=== PATIENT | male | born 1960 | race Caucasian/White ===

== ENCOUNTER → 2017-10-04 17:55 | Outpatient (CLI) | payer MEDICARE, MEDICAID, SELFPAY ==
--- NOTE | 2017-10-04 | DI.MRI.S_ITS ---
PROCEDURE: MR SHOULDER RT WO CON INDICATIONS: 56 year-old male with right shoulder pain, right finger and arm numbness. TECHNIQUE: Noncontrast oblique coronal T2 fast spin echo with fat saturation, oblique sagittal T1 spin echo and T2 fast spin echo with fat saturation, axial T1 spin echo and T2 fast spin echo with fat saturation through the shoulder. COMPARISON: [facility], CR, XR SHOULDER RT MIN 2V, 09/13/2017, 15:04. FINDINGS: Image quality: Excellent. Rotator cuff: The supraspinatus, infraspinatus, and subscapularis tendons appear intact throughout. No rotator cuff muscle atrophy on sagittal images. Bones and bursae: No bone marrow contusions or fractures. There is mild acromioclavicular joint degeneration, with osseous and synovial hypertrophy. The acromion demonstrates conventional anatomy, without an os acromiale. No pathologic subacromial-subdeltoid or subcoracoid bursal fluid is present. Capsule and soft tissues: On coronal image 11, there is mildly irregular linear signal within the superior labrum. In the absence of intra-articular contrast, the glenohumeral ligaments appear intact. The long head of the biceps tendon demonstrates normal location and morphology. The rotator interval appears normal, without fibrosis. The coracohumeral ligament is normal in thickness. IMPRESSION: 1. Probable small superior labral tear. No para labral cyst formation. 2. Mild acromioclavicular joint degeneration. Dictated by: Caesar Escobar M.D. on 10/05/2017 at 10:43 Approved by: Caesar Escobar M.D. on 10/05/2017 at 10:49
--- NOTE | 2017-10-04 | DI.MRI.S_ITS ---
PROCEDURE: MR CERVICAL SPINE WO CON INDICATIONS: CERVICAL STENOSIS AND RT SHOULDER ROTATOR CUFF TECHNIQUE: Noncontrast sagittal T1 spin echo and T2 fast spin echo, sagittal STIR, foraminal oblique sagittal T2 fast spin echo, and axial gradient echo or T2 fast spin echo through the cervical spine. COMPARISON: [facility], CR, XR CERVICAL SPINE 2 OR 3 VIEWS, 09/27/2017, 10:04. FINDINGS: Image quality: Excellent. Alignment and Curvature: There is mild loss of cervical lordosis. Bone Marrow: There is inferior endplate edema at C5 and C6. Spinal Cord: Visualized spinal cord has normal size and signal. No cerebellar tonsillar herniation. Paraspinous Soft Tissues: No paravertebral masses. Prevertebral soft tissues are normal in thickness. C2-C3: Normal appearance. C3-C4: Mild disc desiccation with preserved disc height. Mild uncovertebral hypertrophy. The central canal is patent. Mild bilateral foraminal stenosis. C4-C5: Mild disc desiccation with preserved disc height. Mild diffuse posterior disc bulge and uncovertebral hypertrophy. The central canal is mildly narrowed. Moderate right and mild left foraminal stenosis. C5-C6: Moderate loss of disc height and disc desiccation. There is broad posterior disc bulge and disc protrusion. Moderate bilateral facet arthropathy. The central canal is severely narrowed. Moderate bilateral foraminal stenosis. C6-C7: Mild loss of disc height and disc desiccation. There is broad posterior disc bulge. Mild bilateral facet arthropathy. The central canal is moderately narrowed. Severe bilateral foraminal stenosis. C7-T1: Normal appearance. IMPRESSION: 1. Multilevel degenerative disc disease and facet arthropathy as described. 2. Severe central canal stenosis at C5-C6. 3. Multilevel foraminal stenoses as described. Dictated by: Jayson Silveira M.D. on 10/05/2017 at 16:16 Approved by: Jayson Silveira M.D. on 10/06/2017 at 9:44
== END ==
PROVIDERS: Family Provider Family Medicine; PCP Family Medicine; Visit Provider Orthopaedic Surgery
DX: M54.2 Cervicalgia (principal); M19.011 Primary osteoarthritis, right shoulder; M48.02 Spinal stenosis, cervical region
CPT/HCPCS: 72141; 73221

== ENCOUNTER 2018-01-12 05:59 | Day surgery (SDC) | payer MEDICARE, MEDICAID, SELFPAY ==
[2017-12-27 08:35] VITALS: BMI 31.6
[2018-01-12] VITALS (14 sets, daily range): BP systolic 135–169; BP diastolic 73–98; PULSE 67–92; RESP 8–16; TEMP 35.9–36.9; O2SAT 91–98; BMI 31.6
--- NOTE | 2018-01-12 | DI.RAD.S_ITS ---
PROCEDURE: XR CERVICAL SPINE 2V OR 3V INDICATIONS: c5-6, 6-7 ACDF TECHNIQUE: 2 view(s) of the cervical spine were acquired. COMPARISON: None. FINDINGS: Bones: Additional acquisition imaging immediately after anterior cervical discectomy and interbody disc prosthesis placement at C5-6 and C6-7. Soft tissues: No prevertebral soft tissue swelling. IMPRESSION: Normal alignment established after 2 level discectomy with interbody disc prosthesis placement at C5-6 and C6-7. Dictated by: Marquise Quintanilla M.D. on 01/12/2018 at 9:34 Approved by: Marquise Quintanilla M.D. on 01/12/2018 at 9:45
[2018-01-12] MEDS: LACTATED RINGERS 1,000 ML 42 ML IV (07:05)
[2018-01-12] MEDS: GABAPENTIN 600 MG TABLET 1200 MG PO (07:12)
--- NOTE | 2018-01-12 07:29 | PM.PREOP ---
Pre-operative Note Interval Note Pre-op Check: Yes History & Physical Reviewed by Physician and Yes Exam Performed Changes: No
--- NOTE | 2018-01-12 07:29 | PM.OP.1 ---
Operative Date/Time/Diagnoses Date of procedure: 01/12/18 Time of procedure: 09:20 Pre-op diagnosis: Cervical disc herniation and stenosis with radiculopathy Post-op diagnosis: same Procedure & Clinicians Procedure: C5-6 anterior diskectomy and artificial disc replacement C6-7 anterior diskectomy and artificial disc replacement use of microscope Same procedure as scheduled: Yes Indications: [age] year old male with intractable pain from cervical disc herniation. They had failed conservative management and requested operative intervention. Risks and benefits of surgery were discussed and appropriate consents were obtained. Surgeon: Aston Stone Executive Officer: Norma Stock Click Yes if Unassisted: No Anesthesia Type: General Operative Notes Findings: None Closure Type: primary Specimen(s): none sent Implants & Drains: Fidencio LDR Mobi-C Estimated Blood Loss (mL): 10 Blood products transfused: none Procedure in detail: Patient was brought to the operating room and intubated on the table. A time-out was performed. Preoperative antibiotics were given. The neck was prepped and draped in the standard sterile fashion. Using a skin fold, we made a 3 cm oblique incision on the left side. We used Bovie to go through the platysma and then did a standard anterolateral blunt dissection down to the precervical fascia. Fascia was nicked and elevated up. A marker was placed and x-ray was taken for localization. We then subperiosteally elevated up the longus colli muscles. Self-retaining retractors were placed. [place] pins were placed under x-ray guidance to be parallel to the endplates. We then brought in the microscope. A scalpel used to perform an annulotomy. We then used a combination of pituitaries and curettes and Kerrison to perform a complete anterior diskectomy at C6-7. We took down the PLL and used Kerrison to remove any posterior disc material and osteophytes. At the end we could from the nerve hook cephalad caudally and out the foramen and everything was opened. We distracted open with the parallel hand wood sander. We then used the horseshoes for sizing. We then used the trials. We then inserted a 17 mm x 15 mm x 5 mm Mobi-C artificial disc replacement under fluoroscopic guidance for positioning. The traction was released and x-ray was checked again. We then moved up to C5-6. [place] pin was placed into C5 and distracted. A complete diskectomy was performed with curettes and pituitaries and Kerrisons. We took down the PLL. Posterior disc and osteophytes were removed. We cleared out the neural foramen. In the end everything was open with a nerve hook. We again trialed and this time placed a 15 mm x 15 mm x 6 mm Mobi-C artificial disc replacement under fluoroscopic guidance for positioning. The traction was released and x-rays checked again. All the retractors were removed and final x-rays were taken. The wound was irrigated. There was no bleeding. The carotid was beating nicely. The platysma was closed. The superficial was closed. The skin was closed. A sterile dressing was placed. They were then extubated and brought to recovery room with no complications. Complications: none Condition: stable Disposition: PACU Plan for aftercare: Overnight admission. Should be fine for discharge tomorrow.
[2018-01-12] MEDS: CEFAZOLIN 2 GM/100 ML FROZ.PIGGY IV ×2 (07:47→16:26)
--- NOTE | 2018-01-12 08:21 | SUR.OPER ---
Supine, head on gel donut. Arms padded with gel pads, tucked at sides, towel roll under shoulders. Safety belt at thigh. Legs uncrossed.
[2018-01-12] MEDS: BUPIVACAINE 0.25% W/ EPI VIAL 50 ML INJ (08:31)
[2018-01-12] MEDS: THROMBIN (BOVINE) 5,000 UNIT VIAL 5000 UNIT TOP (08:32)
[2018-01-12] MEDS: GENTAMICIN 80 MG in SODIUM CHLORIDE 0.9% 1,000 ML 12024 MG IRR (08:40)
[2018-01-12] MEDS: HYDROMORPHONE 2 MG INJ 0.5 MG IV ×4 (09:46→10:14)
[2018-01-12] MEDS: ONDANSETRON 4 MG/2 ML INJ IV ×2 (09:56→10:11)
[2018-01-12] MEDS: hydrOXYzine pamoate 25 MG CAPSULE PO (10:08)
--- NOTE | 2018-01-12 10:28 | SUR.PHASEI ---
Report called to Cassandra Bernal
--- NOTE | 2018-01-12 10:53 | SUR.PHASEI ---
Pt transferred to the floor. VS stable. IV saline locked. Small amt of bloody drainage to dressing LLQ. Belongings bag and glasses with patient. Report to GREER Trujillo. Pt reported tingling to Rt thumb as normal for him.
[2018-01-12] MEDS: LACTATED RINGERS 1,000 ML 125 ML IV (11:37)
--- NOTE | 2018-01-12 13:04 | SLP.IPNOTE ---
TRAIN DISPATCHER spoke with patient after ACDF surgery. Explained the procedure and the possible difficulties with voice/swallowing following this procedure. Patient verbalized understanding of this information. He stated that he has had difficulty swallowing in the past, but that he does not feel that he is having any trouble at this time. No reported change in voice. He did report mild pain in his throat, but was not concerned. TRAIN DISPATCHER recommended that if any pain or changes develop/continue for 1-2 weeks post-surgery, to consult his MD. Patient agreed. No evaluation performed. Total time: 5 minutes.
--- NOTE | 2018-01-12 15:35 | PT.IIE ---
Current Diagnoses Spinal stenosis, cervical region (01/12/18) Radiculopathy, cervical region (01/12/18) Surgery Performed Operation Date: 01/12/18 07:45 Actual Procedures p C5-6, C6-7 Anterior Discectomy & Art Disc Replacement - Aston Stone MD Surgical History (Last Updated 12/27/17 @ 09:42 by Sharon Ramirez RN) Hx of eye surgery (Acute) Hx of heart artery stent (Acute) Hx of sinus surgery (Acute) Hx of tonsillectomy (Acute) S/P CABG x 3 (Acute) Medical History (Last Updated 12/27/17 @ 09:53 by Sharon Ramirez RN) Asthma (Acute) BCC (basal cell carcinoma) (Acute) CAD (coronary artery disease) (Acute) COPD (chronic obstructive pulmonary disease) (Acute) Chronic neck and back pain (Acute) Colon polyps (Acute) GERD (gastroesophageal reflux disease) (Acute) Gastric ulcer (Acute) HTN (hypertension) (Acute) Heart murmur (Acute) History of HIV infection (Acute) Hyperlipidemia (Acute) Hypothyroidism (Acute) Impaired glucose tolerance (Acute) Kidney stones (Acute) Neuropathy (Acute) Nonrheumatic aortic (valve) insufficiency (Acute) Pleurisy (Acute) Pneumonia (Acute) Right shoulder pain (Acute) Physical Therapy Inpatient Evaluation/Re-Eval M1 PT/OT-IP Prior Functional Status Start: 01/12/18 16:35 Freq: NEEDED Status: Active Protocol: Document 01/12/18 15:35 AB (Rec: 01/12/18 16:45 AB [id number]) Medical Review Prior Functional Status Medical History Reviewed Yes Communication able to make needs known Mobility and Gait stated that he is independent with all mobilities and ambulation without AD Social History Household Members spouse children Living Arrangements House Number of Floors (Floors) One Floor Number of Stairs To Enter/Railing? has no steps to enter Home Environment Standard Height Toilet Walk in Shower Home Equipment Hand Held Shower Grab Bars In Shower Employment Status Retired M2 PT-IP Current Condition Start: 01/12/18 16:35 Freq: NEEDED Status: Active Protocol: Document 01/12/18 15:35 AB (Rec: 01/12/18 16:45 AB [id number]) Physical Therapy Current Condition Current Condition Evaluation Date 01/12/18 Treatment Diagnosis s/p C5-6 ACDF and C6-7 diskectomy; difficulty in walking Onset Date 01/12/18 Precautions Cervical Spine Precautions Soft Collar for Comfort Soft Collar at all Times Rigid Collar No Heavy Lifting Log Roll Brace pt has soft cervical collar on during PT eval M3 PT-IP Subjective Start: 01/12/18 16:35 Freq: NEEDED Status: Active Protocol: Document 01/12/18 15:35 AB (Rec: 01/12/18 16:45 AB [id number]) Subjective Physical Therapy Visit Type Type Initial Evaluation Visit Start Time 15:35 Visit Stop Time 16:05 Total Visit Minutes 30 Number of BELT KNIFE FEEDER Visits 0 Physical Therapy Visit Comments Patient Comments i am hungry Therapy Pain Assessment Pain When Pain Assessed At Rest Pain Present Pain Present Pain Reported Location Neck Intensity 3 Scale Used Numeric (1 - 10) M4 PT-IP Mobility and Gait Start: 01/12/18 16:35 Freq: NEEDED Status: Active Protocol: Document 01/12/18 15:35 AB (Rec: 01/12/18 16:45 AB [id number]) PT-Bed Mobility Assessment Rolling Type of Rolling Log Rolling Level of Assist Standby Assistance Supine to Sit Supine to Sit Standby Assistance PT-Transfer Assessment Sit to and From Stand Sit to and from Stand Standby Assistance Equipment Transfer Assistive Device Gait Belt Gait Assessment Gait Gait Assistance Required: Standby Assistance Distance (Feet) (feet) 250 Able to Maintain Weight Bearing Status Yes During Gait Assistive Devices Assistive Device Gait Belt Orthotic/Prosthetic Devices or Brace: No Gait Deviations General Gait Pattern Decreased Stride Length Factors Limiting Gait Function Factors Limiting Gait Function Decreased Activity Tolerance Decreased Strength Pain PT-Balance Assessment Sitting Balance and Reactions Static Sitting Balance Ability Good Dynamic Sitting Balance Ability Good Standing Balance and Reactions Static Standing Balance Ability Good Dynamic Standing Balance Ability Good Device Used without AD M5 PT-IP Objective Assessments Start: 01/12/18 16:35 Freq: NEEDED Status: Active Protocol: Document 01/12/18 15:35 AB (Rec: 01/12/18 16:45 AB [id number]) Orientation Orientation/Cognition Level of Alertness Alert Orientation Name Age Birthday Month Date Year Day of Week Place Situation Gross Range of Motion Lower Extremity ROM Assessment Within Functional Limits Strength Lower Extremity Strength Assessment Within Functional Limits Muscle Tone Muscle Tone WNL Yes M6 PT-IP Treatment Start: 01/12/18 16:35 Freq: NEEDED Status: Active Protocol: Document 01/12/18 15:35 AB (Rec: 01/12/18 16:45 AB [id number]) Physical Therapy Treatment Education Education Provided Precautions Weight Bearing Status Post-Op Packet Safety M7 PT-IP Assessment and Plan Start: 01/12/18 16:35 Freq: NEEDED Status: Active Protocol: Document 01/12/18 15:35 AB (Rec: 01/12/18 16:45 AB [id number]) PT Summary Assessment and Plan Potential Rehabilitation Potential Good Status of Condition at Evaluation Stable Summary Impairments Pain ROM Strength Balance Coordination Bed Mobility Transfers Gait Activity Tolerance Assessment Summary pt requiring SBA with mobility and will have his spouse or son to assist him at home. pt may go home when medically stable. Goals Bed Mobility Goal Independent Transfer Goal Independent Gait Goal Independent Gait Distance 250 Days to Meet Goals 2 Frequency of Treatment Frequency Of Treatment Twice a Day Treatment Plan Physical Therapy Treatment Plan Bed Mobility Training Transfer Training Gait Training Therapeutic Exercise Balance Retraining Post Op Education Discharge Planning Hot or Cold Pack Neuromuscular Re-ed Coordination Retraining Manual Therapy Recommendations To Nursing Amount of Assist Needed Standby Assistance Discharge Recommendations PT Discharge Recommendations Home with Assistance
[2018-01-12] MEDS: HYDROCODONE/ACET 5/325 TABLET 1 TAB PO (16:28)
--- NOTE | 2018-01-12 16:44 | PC.NURSE ---
Discharge orders received from Kendell Stock PA-C via telephone. States not in house to actually file discharge orders. Scripts are in pt's chart and these were photocopied and originals given to pt's spouse per pt request. Administered single vicodin prior to discharge per pt's request for pain 08/22. Soft collar in place. Pt reports able to void without difficulty, has eaten meal, denies difficulty with swallow although states is somewhat sore to do so. IV antibioics infusing as ordered @ 1600. P.T. has ambulated pt around hallway without difficulty. Pt's spouse and son are present and awaiting discharge. Pt verbalizes desire to go home. Written and verbal discharge instructions provided. Pt states has follow up appointment already scheduled. Pt reports all valuables and home meds are accounted for and in pt's possession.
--- NOTE | 2018-01-12 16:55 | OT.IP.TRT ---
Current Diagnoses Spinal stenosis, cervical region (01/12/18) Radiculopathy, cervical region (01/12/18) Surgery Performed Operation Date: 01/12/18 07:45 Actual Procedures p C5-6, C6-7 Anterior Discectomy & Art Disc Replacement - Aston Stone MD Occupational Therapy Treatment Note M3 OT- IP Subjective and Pain Start: 01/12/18 16:53 Freq: Status: Active Protocol: Document 01/12/18 16:54 [facility] (Rec: 01/12/18 16:55 [facility] [id number]) OT- Subjective Occupational Therapy Visit Type Type Administrative Note Notes Pt going home today and already seen by PT and has supportive family to assist at home. Pt states has no questions or concerns for OT needs. Therefore discharge Ot eval order.
--- NOTE | 2018-01-12 17:07 | PC.NURSE ---
Pt most eager to go home. IV dc'd intact and pt reports relief from vicodin administered earlier to manage pain. Pt left hospital ambulatory with family members accompanying with [employer]TERN [employer] escort. Pt left hospital in stable condition to follow up with orthopedic surgeon two weeks.
--- NOTE | 2018-01-12 18:55 | PC.NURSE ---
Pharmacist from [facility] in [place] phones this travel writer inquiring re pt's naproxyn script. Written as one po bid x 2 weeks, dispense 14 is written. Informed pharmacist this travel writer took a verbal telephone order from Kendell Stock PA-C that pt was to take naproxen x 2 weeks and then restart meloxicam. Clarified and pharmacist to adjust to 28 tabs.
== END 2018-01-12 17:10 | disposition home or self-care (01) ==
LOC: OR 06:03 → AC 11:03
PROVIDERS: Family Provider Family Medicine; PCP Family Medicine; Visit Provider Orthopaedic Surgery
PROC: (CPT 22856; principal; 2018-01-12 07:45)
DX: M50.122 Cervical disc disorder at C5-C6 level with radiculopathy (principal); M48.02 Spinal stenosis, cervical region; F17.210 Nicotine dependence, cigarettes, uncomplicated; I25.10 Atherosclerotic heart disease of native coronary artery without angina pectoris; I51.9 Heart disease, unspecified; J45.909 Unspecified asthma, uncomplicated
CPT/HCPCS: 22856; 22858; 72040; 76000; 97161; C1776; J0690; J1100; J1170; J2250; J2405; J2704; J3010

== ENCOUNTER → 2018-06-05 15:37 | Outpatient (REF) | payer MEDICARE, MEDICAID, SELFPAY ==
[2018-01-12 11:44] VITALS: BMI 31.6
[2018-06-05 16:08] LABS: Influenza A and B by PCR Rapid Negative (Negative)
== END ==
LOC: LAB 15:37
PROVIDERS: Family Provider Family Medicine; PCP Family Medicine; Visit Provider Family Medicine
DX: R50.9 Fever, unspecified (principal)
CPT/HCPCS: 87400

== ENCOUNTER 2019-01-04 15:39 | Emergency (ER) | payer OTHER, MEDICARE, MEDICAID, SELFPAY ==
[2018-01-12 11:44] VITALS: BMI 31.6
[2019-01-04 15:42] VITALS: BP 122/70; PULSE 83; RESP 14; TEMP 36.7; O2SAT 97; BMI 30.4
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
[2019-01-04] MEDS: CYCLOBENZAPRINE 10 MG TABLET PO (16:54)
[2019-01-04] MEDS: KETOROLAC 60 MG/2 ML VIAL 30 MG IM (16:54)
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
[2019-01-04 17:55] VITALS: BP 111/64; PULSE 58; RESP 18; O2SAT 96
== END 2019-01-04 17:55 | disposition home or self-care (01) ==
PROVIDERS: Emergency Provider Emergency Medicine; Family Provider Family Medicine; PCP Family Medicine
DX: S16.1XXA Strain of muscle, fascia and tendon at neck level, initial encounter (principal); M54.9 Dorsalgia, unspecified; V49.40XA Driver injured in collision with unspecified motor vehicles in traffic accident, initial encounter
CPT/HCPCS: 72100; 72125; 96372; 99283; 99284; J1885

== ENCOUNTER → 2020-05-19 12:55 | Outpatient (CLI) | payer OTHER, MEDICAID, SELFPAY ==
[2018-01-12 11:44] VITALS: BMI 31.6
[2020-05-19 15:00] LABS: Reticulocyte Count, Percent 1.9 % (0.87-2.60)
[2020-05-19 15:03] LABS: Add Manual Diff / Slide Review NO; Basophils Absolute Auto 0 /uL (0-100); Basophils Percent Auto 0.4 % (0-2); Eosinophils Absolute Auto 100 /uL (0-450); Hematocrit 39.9 % (41-53); Hemoglobin 13.6 g/dL (13.5-17.5); Lymphocytes Absolute Auto 2300 /uL (1100-4500); Lymphocytes Percent Auto 41.5 % (25-40); Mean Corpuscular Volume 102.7 fL (80-100); Monocytes Absolute Auto 500 /uL (0-900); Monocytes Percent Auto 9.3 % (3-14); Neutrophils Absolute Auto 2600 /uL (1500-7000); Neutrophils Percent Auto 47.8 % (50-75); Platelet Count 213 X10^3/uL (150-400); Red Blood Cell Count 3.89 X10^6/uL (4.5-5.9); Red Cell Distribution Width 13.4 % (11.6-14.8); White Blood Cell Count 5.5 X10^3/uL (4.5-11.0)
[2020-05-19 15:30] LABS: Alanine Aminotransferase 34 IU/L (<50); Albumin 4.5 g/dL (3.5-5.0); Albumin Globulin Ratio 1.5 (1.0-2.8); Alkaline Phosphatase 32 U/L (38-126); Aspartate Aminotransferase 41 IU/L (17-59); BUN Creatinine Ratio 16.3 (6-22); Bilirubin Total 0.2 mg/dL (0.2-1.3); Blood Urea Nitrogen 21 mg/dL (9-20); Calcium 9.5 mg/dL (8.4-10.2); Carbon Dioxide 29 mmol/L (22-32); Chloride 110 mmol/L (98-107); Estimated Glomerular Filt Rate 56.8 mL/min (>60); Globulin 3.1 g/dL (1.7-4.1); Glucose 100 mg/dL (80-110); HEMOLYSIS < 15 (0-50); Sodium 142 mmol/L (137-145); Total Protein 7.6 g/dL (6.3-8.2)
[2020-05-19 15:45] LABS: Total Iron Binding Capacity 410 ug/dL (261-462)
[2020-05-19 16:02] LABS: Ferritin 194 ng/mL (18-464)
[2020-05-19 16:32] LABS: Folate > 20.0 ng/mL (2.76-20.0); Vitamin B12 600 pg/mL (239-931)
== END ==
PROVIDERS: Family Provider Family Medicine; PCP Family Medicine; Referring Provider Family Medicine; Visit Provider Family Medicine
DX: D64.9 Anemia, unspecified (principal)
CPT/HCPCS: 36415; 80053; 82607; 82728; 82746; 83550; 85025; 85045

== ENCOUNTER → 2021-08-26 15:54 | Outpatient (CLI) | payer OTHER, MEDICAID, SELFPAY ==
[2018-01-12 11:44] VITALS: BMI 31.6
[2021-08-26 17:04] LABS: COVID19 -Nasal RAPID Negative (Negative)
== END ==
PROVIDERS: Family Provider Family Medicine; PCP Family Medicine; Visit Provider Family Medicine Sleep Medicine
DX: Z20.822 Contact with and (suspected) exposure to COVID-19 (principal)
CPT/HCPCS: 87635; C9803

== ENCOUNTER → 2021-08-27 09:14 | Outpatient (CLI) | payer OTHER, MEDICAID, SELFPAY ==
[2018-01-12 11:44] VITALS: BMI 31.6
[2021-08-26 13:27] VITALS: BMI 31.6
--- NOTE | 2021-08-27 | DI.NM.S_ITS ---
PROCEDURE: NM DESIRE PERF SPECT R&S PHARM Rest and pharmacological stress myocardial perfusion SPECT with gated imaging and ejection fraction RADIOPHARMACEUTICAL: 11.8 mCi Tc-99m tetrafosmin IV at rest and 26.3 mCi Tc-99m tetrafosmin IV at peak effect of pharmacological stress. [id number]-dbt-[id number] was performed. INDICATIONS: Presence of aortocoronary bypass graft TECHNIQUE: Radiopharmaceutical was injected at peak stress test, and also at rest. SPECT images were obtained. SPECT myocardial perfusion images were displayed in short axis, horizontal long axis, and vertical long axis views. Gated images were reviewed using [employer] software. COMPARISON: None. CARDIAC STRESS: A pharmacologic stress test was performed under the supervision of an attending staff, using an infusion of lexiscan 0.4mg IV X1. Hemodynamic data: There is normal blood pressure and heart rate response to pharmacologic stress. Symptoms: The patient denied anginal chest pain. Aminophylline: none EKG: No diagnostic changes of ischemia; no ectopy. FINDINGS: Raw data: There is good myocardial uptake of radiotracer. No significant motion artifacts. Left ventricle function: Gated images demonstrate normal left ventricular wall thickening. No segmental wall motion abnormalities. No transient ischemic dilation; TID is 0.74 (normal less than 1.3). Left ventricle resting end diastolic volume is 140 mL. Left ventricle stress ejection fraction is 73%; normal range is above 45%. Myocardial perfusion: There is normal distribution of activity in the right and left ventricular myocardium. No fixed or reversible perfusion defects. IMPRESSION: Low risk, normal pharmaceutical nuclear stress test 1) No perfusion evidence of ischemia or infarction. 2) Normal left ventricular size, wall motion, and systolic function (EF post stress 73%). 3) No ST changes with lexiscan. 4) No angina during the study. 5) Compared to nuclear stress test 04/02/2010, LAD area ischemia is no longer present on the current study. Dictated by: Gregoria Aragon MD on 08/30/2021 at 16:56 Approved by: Gregoria Aragon MD on 08/30/2021 at 16:58
--- NOTE | 2021-08-27 10:46 | DI.ECHO.S_ITS ---
+ + :Name: marcie park Study Date: 08/27/2021 Height: 68 in : :Hospital ReadingLocation: Weight: 200 lb : : Gender: Male BSA: 2.0 m2 : :: 1960 Age: 60 yrs BP: 155/90 mmHg: :Reason For Study: CABG : :Ordering Physician: GUDELIA, : :MIGUEL Performed By: Ramiro Hudson : :Referring: MIGUEL GALEAS : + + Interpretation Summary Left ventricular wall thickness is mildly increased. Left ventricular systolic function is normal. The ejection fraction is estimated to be 55-60%. There are no focal wall motion abnormalities. Diastolic parameters suggest probable normal left ventricular diastolic function and normal filling pressures. The right ventricle is normal in size and function. Both atria are normal in size. There is mild mitral regurgitation. The aortic valve is mildly calcified. There is mild to moderate aortic regurgitation. There is no other significant valvular heart disease. The aortic root is normal size. The ascending aorta is mild-moderately enlarged. Procedure: A two-dimensional transthoracic echocardiogram with color flow and Doppler was performed. The study quality was technically adequate. Comparison is made with the echocardiogram of 07/26/2011. The patient was in normal sinus rhythm during the exam. Left Ventricle: The left ventricle is normal in size. Left ventricular wall thickness is mildly increased. Left ventricular systolic function is normal. The ejection fraction is estimated to be 55-60%. There are no focal wall motion abnormalities. Diastolic parameters suggest probable normal left ventricular diastolic function and normal filling pressures. Right Ventricle: The right ventricle is normal in size and function. Atria: Both atria are normal in size. The interatrial septum grossly appears intact with no obvious evidence for an atrial septal defect. Mitral Valve: The mitral valve is normal in structure and function. There is mild mitral regurgitation. Aortic Valve: The aortic valve is mildly calcified. The aortic valve opens well. There is mild subvalvular aortic stenosis. The aortic valve mean gradient is 16 mmHg. Subaortic membrane is visualizrd. There is mild to moderate aortic regurgitation. Tricuspid Valve: The tricuspid valve is normal in structure and function. No tricuspid regurgitation. Pulmonary artery pressures cannot be estimated because of the lack of a measurable TR jet velocity. Pulmonic Valve: The pulmonic valve is normal in structure and function. There is a trace or physiologic amount of pulmonic regurgitation. There is no other significant valvular heart disease. Great Vessels: The aortic root is normal size. The ascending aorta is mildmoderately enlarged. The IVC is of normal diameter and collapses greater than 50% with a sniff. This suggests a low right atrial pressure of 3 mm Hg. Pericardium/ Pleura There is no pericardial effusion. There is no pleural effusion. MMode/2D Measurements & Calculations LVIDd: 5.1 cm LVOT diam: 2.3 cm LVIDs: 3.4 cm Ao root diam: 3.6 cm FS: 33.3 % asc Aorta Diam: 4.1 cm IVSd: 1.2 cm LVPWd: 1.2 cm LV stevens. diameter/BSA (cm/m^2): 2.5 LV sys. diameter/BSA (cm/m^2): 1.7 LA A2 area: 18.0 cm2 RA long axis: 5.1 cm LA A4 area: 20.2 cm2 RA area: 13.6 cm2 LA length (vol): 5.8 cm RA vol: 30.7 ml LA vol: 53.0 ml RA : 15.0 ml/m2 LA vol index: 25.9 ml/m2 TAPSE: 2.2 cm Doppler Measurements & Calculations Ao V2 max: 284.3 cm/sec LVOT Max Cale: 190.9 cm/sec Ao V2 mean: 184.6 cm/sec LV V1 max P.6 mmHg Ao max P.3 mmHg LV V1 VTI: 45.5 cm Ao mean P.0 mmHg ANGELA(I,D): 3.1 cm2 Ao V2 VTI: 61.4 cm ANGELA(V,D): 2.8 cm2 sev ratio: 0.74 ANGELA indexed to BSA (cm^2/m^2): 1.5 AI P1/2t: 513.0 msec AI dec slope: 244.7 cm/sec2 MV E max cale: 86.8 cm/sec SV(LVOT): 190.1 ml MV A max cale: 83.0 cm/sec MV E/A: 1.0 Med Peak E' Cale: 5.9 cm/sec E/E' med: 14.7 Lat Peak E' Cale: 7.2 cm/sec E/E' lat: 12.1 E/e' average: 13.4 MV dec time: 0.23 sec Reading Physician:09:35 AM
--- NOTE | 2021-08-27 15:02 | PM.TREADMILL ---
Cardiac Stress Test Report Referral & Results Date Patient Seen: 08/27/21 Time Patient Seen: 15:02 Requesting provider: Lillian Argueta Indication: CAD, S/P CABG Rest ECG: Sinus rhythm Procedure Note: After Lexiscan injection, had minimal dyspnea, no chest pain No significant ST changes after Lexiscan injection No ectopy Impression: Normal Lexiscan stress test Nuclear images pending Please note: Actual ECG tracings can be found in the PACS system.
== END ==
PROVIDERS: Family Provider Family Medicine; PCP Family Medicine; Referring Provider Nurse Practitioner; Visit Provider Nurse Practitioner
DX: I25.10 Atherosclerotic heart disease of native coronary artery without angina pectoris (principal); Z95.1 Presence of aortocoronary bypass graft
CPT/HCPCS: 78452; 93017; 93306; A9502; J2785

== ENCOUNTER → 2023-05-25 12:12 | Outpatient (CLI) | payer OTHER, MEDICAID, SELFPAY ==
[2021-08-26 13:27] VITALS: BMI 31.6
--- NOTE | 2023-05-25 | DI.RAD.S_ITS ---
PROCEDURE: XR SHOULDER RT MIN 2V INDICATIONS: SHOULDER PAIN TECHNIQUE: 3 views of the shoulder were acquired. COMPARISON: [facility], CR, XR SHOULDER RT MIN 2V, 09/13/2017, 15:04. FINDINGS: Bones: No fractures or dislocations. No suspicious bony lesions. Mild osteoarthritic changes. Visualized ribs appear intact. Soft tissues: No suspicious soft tissue calcifications. IMPRESSION: Mild osteoarthritis. Dictated by: Jayson Silveira M.D. on 05/25/2023 at 15:23 Approved by: Jayson Silveira M.D. on 05/25/2023 at 15:33
--- NOTE | 2023-05-25 | DI.RAD.S_ITS ---
PROCEDURE: XR THORACIC SPINE 2V INDICATIONS: BACK PAIN TECHNIQUE: 3 views of the thoracic spine were acquired. COMPARISON: [facility], THORACIC SPINE 3 VIEWS, 03/01/2013, 11:03. FINDINGS: Patient is status post median sternotomy and CABG. Intervertebral arthroplasties are visualized within the lower cervical spine. Bones: No fractures or dislocations. No suspicious bony lesions. There is diffuse anterior wedging throughout the midthoracic spine. There is diffuse intervertebral disc space narrowing and endplate sclerosis. 12 pairs of ribs are noted, and appear intact where visualized. Soft tissues: No paravertebral stripe thickening. IMPRESSION: Degenerative change. No acute radiographic findings. Dictated by: Ximena Chaudhry M.D. on 05/25/2023 at 14:18 Approved by: Ximena Chaudhry M.D. on 05/25/2023 at 14:19
--- NOTE | 2023-05-25 | DI.RAD.S_ITS ---
PROCEDURE: XR CHEST 2V INDICATIONS: COUGH TECHNIQUE: 2 views of the chest were acquired. COMPARISON: [facility], RG, XR CXR 2 VIEW, 06/09/2003, 11:05. [facility], CR, CHEST 2 VIEW, 09/13/2010, 11:25. [facility], CR, CHEST 2 VIEW, 09/08/2009, 11:00. FINDINGS: Surgical changes and devices: Sternotomy and CABG. Lungs and pleura: There is interstitial prominence. No focal consolidation. No pleural effusions or pneumothorax. Mediastinum: Mediastinal contours are normal. Heart size is normal. Bones and chest wall: No suspicious bony abnormalities. Soft tissues appear unremarkable. IMPRESSION: No acute cardiopulmonary abnormality is seen. Dictated by: Jayson Silveira M.D. on 05/25/2023 at 15:17 Approved by: Jayson Silveira M.D. on 05/25/2023 at 15:18
--- NOTE | 2023-05-25 | DI.RAD.S_ITS ---
PROCEDURE: XR SHOULDER LT MIN 2V INDICATIONS: SHOULDER PAIN TECHNIQUE: 3 views of the shoulder were acquired. COMPARISON: None. FINDINGS: Bones: No fractures or dislocations. No suspicious bony lesions. Mild osteoarthritic changes in acromioclavicular and glenohumeral joints. Visualized ribs appear intact. Soft tissues: No suspicious soft tissue calcifications. Note is made of sternotomy and CABG. IMPRESSION: Mild osteoarthritis. Dictated by: Jayson Silveira M.D. on 05/25/2023 at 15:33 Approved by: Jayson Silveira M.D. on 05/25/2023 at 15:34
--- NOTE | 2023-05-25 12:17 | DI.RAD.S_ITS ---
PROCEDURE: XR LUMBAR SPINE 2-3V INDICATIONS: BACK PAIN TECHNIQUE: 3 views of the lumbar spine were acquired. COMPARISON: [facility], CR, XR LUMBAR SPINE 2-3V, 01/04/2019, 16:45. FINDINGS: Bones: 5 fwv-sqt-zeqjalv vertebrae are present. There is normal bony alignment. There is diffuse intervertebral disc space narrowing, endplate sclerosis, osteophytosis and facet sclerosis. No vertebral body compression fractures. No suspicious bony lesions. Soft tissues: Overlying bowel gas pattern is normal. Scattered atheromatous calcifications are present throughout the abdominal aorta. IMPRESSION: No acute bony abnormality. Moderate degenerative change. Aortic atherosclerosis. Dictated by: Ximena Chaudhry M.D. on 05/25/2023 at 14:20 Approved by: Ximena Chaudhry M.D. on 05/25/2023 at 14:20
== END ==
LOC: RAD 12:15
PROVIDERS: Family Provider Family Medicine; PCP Family Medicine; Referring Provider Family Medicine; Visit Provider Family Medicine
DX: M47.816 Spondylosis without myelopathy or radiculopathy, lumbar region (principal); M47.814 Spondylosis without myelopathy or radiculopathy, thoracic region; M19.011 Primary osteoarthritis, right shoulder; M19.012 Primary osteoarthritis, left shoulder; I70.0 Atherosclerosis of aorta; M54.50 Low back pain, unspecified; M54.6 Pain in thoracic spine; M75.02 Adhesive capsulitis of left shoulder; M25.512 Pain in left shoulder; R05.1 Acute cough; G89.29 Other chronic pain
CPT/HCPCS: 71046; 72070; 72100; 73030

== ENCOUNTER → 2023-06-02 10:56 | Outpatient (CLI) | payer OTHER, MEDICAID, SELFPAY ==
[2021-08-26 13:27] VITALS: BMI 31.6
--- NOTE | 2023-06-02 | DI.CT.S_ITS ---
PROCEDURE: CT CHEST W CON INDICATIONS: Acute cough TECHNIQUE: After the administration of intravenous contrast, 5 mm thick sections acquired from the pulmonary apices to the posterior costophrenic angles. 1 mm axial lung, 5 mm thick coronal and sagittal reformats and 7 mm axial MIP were acquired. For radiation dose reduction, the following was used: automated exposure control, adjustment of mA and/or kV according to patient size. COMPARISON: None. FINDINGS: Image quality: Diagnostic. Lower Neck: No enlarged lymph nodes. Thyroid: No thyroid nodules which require sonographic follow up, per consensus guidelines. Axillae: No enlarged lymph nodes. Chest Wall: Unremarkable. Bones: Several large Schmorl's nodes of the thoracic spine. Lungs and Pleura: No pneumothorax or pleural effusions. No consolidation or suspicious nodules. Heart: Heart size is normal. No pericardial effusion. Severe coronary calcifications are present. Medial sternotomy wires are present. Thoracic Vessels: The aorta and pulmonary arteries demonstrate normal size. Mediastinum and Ella: No enlarged lymph nodes. Esophagus: No wall thickening. No hiatal hernia. Upper Abdomen: Visualized upper abdomen solid organs and bowel loops appear normal. IMPRESSION: 1. No pulmonary consolidation to indicate pneumonia. 2. Severe coronary calcifications are present. Dictated by: Ramiro Holly M.D. on 06/02/2023 at 15:36 Approved by: Ramiro Holly M.D. on 06/02/2023 at 17:05
[2023-06-02 11:16] LABS: Estimated Glomerular Filt Rate > 60 mL/min (>60)
== END ==
LOC: CT 10:58
PROVIDERS: Radiology Diagnostic Radiology; Family Provider Family Medicine; PCP Family Medicine; Referring Provider Family Medicine; Visit Provider Family Medicine
DX: J45.20 Mild intermittent asthma, uncomplicated (principal); R05.1 Acute cough; Z87.891 Personal history of nicotine dependence; I25.10 Atherosclerotic heart disease of native coronary artery without angina pectoris
CPT/HCPCS: 36415; 71260; 82565

== ENCOUNTER → 2023-08-23 11:37 | Outpatient (CLI) | payer OTHER, MEDICAID, SELFPAY ==
[2021-08-26 13:27] VITALS: BMI 31.6
== END ==
PROVIDERS: Family Provider Family Medicine; PCP Family Medicine; Referring Provider Physician Assistant Medical; Visit Provider Physician Assistant Medical
DX: Z12.5 Encounter for screening for malignant neoplasm of prostate (principal)
CPT/HCPCS: 36415; 84153

== ENCOUNTER → 2023-08-28 13:25 | Outpatient (CLI) | payer OTHER, MEDICAID, SELFPAY ==
[2021-08-26 13:27] VITALS: BMI 31.6
--- NOTE | 2023-08-28 13:26 | DI.ECHO.S_ITS ---
[facility]---------+ [facility] +---------+ : : [address] : : [address] : [place] : : : : [id number] : : : : Phone: [phone] Echocardiogram Report + + :Name: SHAHNAZ MCKENZIE Study Date: 08/28/2023 Height: 68 in : :[facility] ReadingLocation: Weight: 194 lb : : Gender: Male BSA: 2.0 m2 : :: 1960 Age: 62 yrs BP: 128/72 mmHg: :Reason For Study: CORONARY ARTERY DISEASE : :Ordering Physician: KIMBERLY ZAPATA : :Valeria MARIANO Performed By: Paulette Gray : :Referring: KIMBERLY ZAPATA : + + Interpretation Summary The patient was in sinus bradycardia with heart rates between 53-59 bpm during the exam. The left ventricle is normal in size. The left ventricle is hyperdynamic. The ejection fraction is estimated to be 70-75%. Previous LVEF 55 to 60%. The right ventricle is mildly dilated. The right ventricular systolic function is normal. Aortic valve not well-visualized from short axis view. Suspect subaortic membrane which was seen on previous echo as well. No significant subvalvular stenosis. Cannot rule out bicuspid aortic valve. Mildly restricted aortic valve. Associated moderate AR. No hemodynamically significant aortic stenosis. The peak aortic velocity is 3.0 m/sec. The aortic valve mean gradient is 18 mmHg. The peak aortic velocity on the previous exam was 2.84 m/sec. Overall there is mild aortic stenosis. sev ratio: 0.37. Previously mild to moderate AR. There is mild tricuspid regurgitation. The right ventricular systolic pressure is estimated to be at least 34 mmHg based on an estimated right atrial pressure of 3 mm Hg. The ascending aorta is mildly enlarged. 4.0 cm in diameter. Previously 4.1 cm. Procedure: A two-dimensional transthoracic echocardiogram with color flow and Doppler was performed. The study quality was technically adequate. Comparison is made with the echocardiogram of 08/27/2021. The patient was in sinus bradycardia with heart rates between 53-59 bpm during the exam. Left Ventricle: The left ventricle is normal in size. Left ventricular wall thickness is mildly increased. Proximal septal thickening is noted. There is no echo evidence for significant left ventricular outflow tract obstruction. There is no thrombus. The ejection fraction is estimated to be 70-75%. The left ventricle is hyperdynamic. There are no focal wall motion abnormalities. MV E/A: 1.3 Med Peak E' Cale: 7.8 cm/sec E/E' med: 13.2. Right Ventricle: The right ventricle is mildly dilated. The right ventricular systolic function is normal. Atria: The left atrium is mildly dilated. The left atrium has mildly increased in size since the prior echo exam. The right atrium is borderline dilated. There is no Doppler evidence for an interatrial shunt. Mitral Valve: There is mild mitral annular calcification. There is mild mitral regurgitation. Compared to the prior echo study, there has been no change in the severity of mitral regurgitation. Aortic Valve: The aortic valve is mildly calcified. There is mildly reduced leaflet mobility. Aortic valve not well-visualized from short axis view. Suspect subaortic membrane which was seen on previous echo as well. No significant subvalvular stenosis. Cannot rule out bicuspid aortic valve. Mildly restricted aortic valve. Associated moderate AR. No hemodynamically significant aortic stenosis. The peak aortic velocity is 3.0 m/sec. The aortic valve mean gradient is 18 mmHg. The peak aortic velocity on the previous exam was 2.84 m/sec. There is mild aortic stenosis. There is moderate aortic regurgitation. Tricuspid Valve: The tricuspid valve is normal. There is mild tricuspid regurgitation. The right ventricular systolic pressure is estimated to be at least 34 mmHg based on an estimated right atrial pressure of 3 mm Hg. Pulmonic Valve: The pulmonic valve leaflets are thin and pliable; valve motion is normal. There is trace pulmonic regurgitation. Great Vessels: The aortic root is normal size. The ascending aorta is mildly enlarged. The IVC is of normal diameter and collapses greater than 50% with a sniff. This suggests a low right atrial pressure of 3 mm Hg. Pericardium/ Pleura There is no pericardial effusion. There is no pleural effusion. MMode/2D Measurements & Calculations LVIDd: 4.1 cm LVOT diam: 2.1 cm LVIDs: 2.7 cm Ao root diam: 3.2 cm FS: 34.8 % asc Aorta Diam: 4.0 cm EPSS: 1.1 cm Ao Arch Diam (Prox Trans): 3.1 cm IVSd: 1.5 cm LVPWd: 1.1 cm LV stevens. diameter/BSA (cm/m^2): 2.0 LV sys. diameter/BSA (cm/m^2): 1.3 LA A2 area: 21.5 cm2 RA long axis: 5.2 cm LA A4 area: 24.1 cm2 RA area: 20.5 cm2 LA length (vol): 6.4 cm RA vol: 69.3 ml LA vol: 68.8 ml RA : 34.3 ml/m2 LA vol index: 34.1 ml/m2 IVC diam: 1.9 cm RVD1 (basal): 4.4 cm RVD2 (mid): 3.0 cm TAPSE: 1.9 cm Doppler Measurements & Calculations Ao V2 max: 295.9 cm/sec LVOT Max Cale: 103.0 cm/sec Ao V2 mean: 199.8 cm/sec LV V1 max P.3 mmHg Ao max P.5 mmHg LV V1 VTI: 23.1 cm Ao mean P.2 mmHg ANGELA(I,D): 1.4 cm2 Ao V2 VTI: 61.7 cm ANGELA(V,D): 1.3 cm2 sev ratio: 0.37 ANGELA indexed to BSA (cm^2/m^2): 0.67 AI P1/2t: 494.8 msec AI dec slope: 250.0 cm/sec2 MV E max cale: 102.7 cm/sec TR max cale: 279.6 cm/sec MV A max cale: 77.7 cm/sec TR max P.3 mmHg MV E/A: 1.3 PA V2 max: 129.2 cm/sec Med Peak E' Cale: 7.8 cm/sec PA V2 mean: 91.5 cm/sec E/E' med: 13.2 PA mean P.7 mmHg Lat Peak E' Cale: 5.7 cm/sec PA pr(Accel): 39.6 mmHg E/E' lat: 18.0 E/e' average: 15.6 MV dec time: 0.26 sec SV(LVOT): 83.6 ml Reading Physician:09:25 AM
== END ==
LOC: ECHO 13:26
PROVIDERS: Family Provider Family Medicine; PCP Family Medicine; Referring Provider Nurse Practitioner Acute Care; Visit Provider Nurse Practitioner Acute Care
DX: I08.0 Rheumatic disorders of both mitral and aortic valves (principal); I77.89 Other specified disorders of arteries and arterioles; I25.10 Atherosclerotic heart disease of native coronary artery without angina pectoris
CPT/HCPCS: 93306

== ENCOUNTER → 2023-11-11 08:31 | Outpatient (CLI) | payer OTHER, MEDICAID, SELFPAY ==
[2021-08-26 13:27] VITALS: BMI 31.6
--- NOTE | 2023-11-11 | DI.MRI.S_ITS ---
PROCEDURE: MR CERVICAL SPINE WO CON INDICATIONS: CERVICAL RADICULOPATHY TECHNIQUE: Noncontrast sagittal T1 spin echo and T2 fast spin echo, sagittal STIR, foraminal oblique sagittal T2 fast spin echo, and axial gradient echo or T2 fast spin echo through the cervical spine. COMPARISON: [facility] [place], CR, XR CERVICAL SPINE 2 OR 3 VIEWS, 06/20/2018, 8:49. [facility], MR, MR CERVICAL SPINE WO CON, 10/04/2017, 18:38. FINDINGS: Image quality: Excellent. Alignment and Curvature: There is normal bony alignment. Bone Marrow: Disc replacements noted at C5-6 and C6-7 Spinal Cord: Visualized spinal cord has normal size and signal. No cerebellar tonsillar herniation. Paraspinous Soft Tissues: No paravertebral masses. Prevertebral soft tissues are normal in thickness. C2-C3: Normal appearance. C3-C4: Normal appearance. C4-C5: Disc height is maintained. Posterior disc osteophyte complex results in [id number] central stenosis. No foraminal stenosis. C5-C6: Discectomy with disc replacement. Posterior osteophyte and ligamentum flavum buckling results in moderate central stenosis with flattening of the cord. Mild bilateral foraminal stenosis C6-C7: Discectomy with disc replacement. Posterior osteophyte results in [id number] central stenosis. C7-T1: Normal appearance. IMPRESSION: Posterior osteophyte at C5-6 results in moderate central stenosis with flattening the ventral cord C5-6 and C6-7 disc replacements Approved by: Koby Mix M.D. on 11/13/2023 at 19:33
== END ==
PROVIDERS: Family Provider Family Medicine; PCP Family Medicine; Referring Provider Orthopaedic Surgery; Visit Provider Orthopaedic Surgery
DX: M54.12 Radiculopathy, cervical region (principal); M48.02 Spinal stenosis, cervical region
CPT/HCPCS: 72141

== ENCOUNTER 2023-11-11 09:08 | Emergency (ER) | payer OTHER, MEDICAID, SELFPAY ==
[2021-08-26 13:27] VITALS: BMI 31.6
[2023-11-11 09:18] VITALS: BP 177/83; PULSE 59; RESP 18; TEMP 36.4; O2SAT 99; BMI 28.8
--- NOTE | 2023-11-11 10:07 | ED_ITS ---
HPI - Back Pain/Injury General Chief Complaint: Back Pain/Injury Stated Complaint: fell t-1 may have broken bones Time Seen by Provider: 11/11/23 10:04 Source: patient, RN notes reviewed and old records reviewed Mode of arrival: Family Vehicle Limitations: no limitations History of Present Illness HPI Narrative: 63-year-old male history hypertension, dyslipidemia, hypothyroidism, HIV positive on antivirals with prior CABG aspirin 81 mg daily. Patient presents after a fall from his Hammock. Patient states yesterday he was in a Hammock he fell out and landed on the metal poles that come out the side to stabilize it. He describes pain and left posterior ribs. He states it was fairly tolerable until he sneezed earlier today pain increased significantly. He states pain is increased with movement, cough, sneeze or Valsalva. He has not appreciate any bruising or skin changes. Denies any shortness of breath. States he did not hit his head, no loss of consciousness. Denies any midline neck or back pain. Denies any new loss of bowel or bladder control. No new numbness tingling or weakness. No nausea or vomiting. No difficulty with ambulation. He has some chronic left upper extremity numbness and had an MRI of his cervical spine before coming to the ER. Patient states he did take muscle relaxers last night which were helpful and took some this morning as well. Patient has allergies to oxycodone, phenothiazines, Compazine and nuts and nickel. He states he does tolerate hydrocodone. Related Data Home Medications Medication Instructions Recorded Confirmed ascorbic acid (vitamin C) 1,000 mg 1,000 mg PO BID ##0 06/07/10 01/04/19 tablet (Vitamin C) cholecalciferol (vitamin D3) 25 3,000 unit PO DAILY ##0 06/07/10 01/04/19 mcg (1,000 unit) capsule (Vitamin D3) montelukast 10 mg tablet 10 mg PO QPM ##0 06/07/10 01/04/19 multivitamin 1 tab PO DAILY ##0 06/07/10 01/04/19 nitroglycerin 0.4 mg sublingual 0.4 mg sublingual Q5-15M PRN Chest 06/07/10 01/04/19 tablet Pain ##0 albuterol sulfate 90 mcg/actuation 1 puff inhalation Q4-6H PRN Asthma 12/27/17 01/04/19 aerosol inhaler aspirin 81 mg tablet,delayed 81 mg PO BEDTIME 12/27/17 01/04/19 release atorvastatin 40 mg tablet 40 mg PO BEDTIME 12/27/17 01/04/19 cetirizine 10 mg tablet (Zyrtec) 10 mg PO DAILY 12/27/17 01/04/19 fenofibrate nanocrystallized 145 145 mg PO BEDTIME 12/27/17 01/04/19 mg tablet (Tricor) gabapentin 800 mg tablet 1,600 mg PO QAM 12/27/17 01/04/19 ivermectin 3 mg tablet 4 tab PO SEEINSTR 12/27/17 01/04/19 levothyroxine 25 mcg tablet 25 mcg PO DAILY 12/27/17 01/04/19 maraviroc 150 mg tablet (Selzentry) 150 mg PO BID HIV med 12/27/17 01/04/19 meloxicam 7.5 mg tablet 7.5 mg PO BID 12/27/17 01/04/19 metoprolol tartrate 25 mg tablet 25 mg PO BID 12/27/17 01/04/19 omeprazole 40 mg capsule,delayed 40 mg PO BID 12/27/17 01/04/19 release Vitamin B-12 1 tab PO DAILY 01/04/19 01/04/19 abacavir 600 mg-dolutegravir 50 1 tab PO DAILY 01/04/19 01/04/19 mg-lamivudine 300 mg tablet (Triumeq) cyanocobalamin (vitamin B-12) See Rx Instructions .Route .COMPLEX 01/04/19/07/31 1,000 mcg/mL injection solution gabapentin 800 mg tablet 2,000 mg PO QPM 01/04/19 01/04/19 glycopyrrolate 1 mg tablet 1 mg PO BID 01/04/19 01/04/19 hydrochlorothiazide 25 mg tablet 25 mg PO DAILY 01/04/19 01/04/19 Previous Rx's Medication Instructions Recorded cyclobenzaprine 10 mg tablet 10 mg PO TID PRN muscle spasm #10 01/04/19 tabs ibuprofen 800 mg tablet 800 mg PO TID PRN pain #10 tabs 01/04/19 hydrocodone 5 mg-acetaminophen 325 1 tab PO Q6H PRN pain #14 tabs 11/11/23 mg tablet Allergies Allergy/AdvReac Type Severity Reaction Status Date / Time cashew nut AdvReac Severe Hives Verified 11/11/23 09:18 oxycodone AdvReac Severe Nausea, Verified 11/11/23 09:18 vomiting peanut AdvReac Severe Hives Verified 11/11/23 09:18 prochlorperazine AdvReac Severe anxiety/amy Verified 11/11/23 09:18 [From COMPAZINE] tation nickel AdvReac Mild Discoloration Verified 11/11/23 09:18 of skin Phenothiazines AdvReac Unknown anxiety/may Verified 11/11/23 09:18 tation Review of Systems Review of Systems ROS Unobtainable: All systems reviewed & are unremarkable except as noted in HPI and below Patient History Medical History (Updated 11/11/23 @ 12:12 by Johanne Jacome DO) Right shoulder pain BCC (basal cell carcinoma) Chronic neck and back pain Kidney stones Colon polyps Gastric ulcer GERD (gastroesophageal reflux disease) Heart murmur Pleurisy Pneumonia COPD (chronic obstructive pulmonary disease) Asthma Neuropathy Impaired glucose tolerance Nonrheumatic aortic (valve) insufficiency HTN (hypertension) Hypothyroidism Hyperlipidemia History of HIV infection CAD (coronary artery disease) Surgical History Hx of tonsillectomy Hx of heart artery stent Hx of sinus surgery Hx of eye surgery S/P CABG x 3 Social History household members: spouse and children Smoking Status: Current every day smoker alcohol intake: current Smoking Status: Current every day smoker alcohol intake frequency: holidays/special occasions only Substance Use Type: marijuana Exam Narrative Exam Narrative: GEN: Patient appears in mild distress. HEAD: No evidence of trauma, no raccoon/Paz sign. NECK: Nontender, painless range of motion, trachea midline Negative for Nexus criteria, no midline line tenderness, distracting injury, altered mental status, neuro deficit, recent EtOH. EYES: PERRLA, EOMI ENT: External inspection normal, trachea is midline, TM's are normal no hemotypanum, Nares are clear, no septal hematoma, no dental or oral injury, airway is normal and with normal occlusion, No bony tenderness RESP: Chest is nontender anteriorly, patient has tenderness over ribs 8 9 posteriorly over the lateral ankle, no obvious ecchymosis or skin changes and has symmetric movement, no ecchymosis, breath sounds are normal no crackles, wheezes or rales CVS: Heart sounds are normal, no murmur noted, No JVD. ABG/GI: Nontender, soft, normal bowel sounds, no distention, no organomegaly, pelvic rock is negative NEURO: Oriented AOx3, neuro is grossly intact, sensation and motor is normal all 4 extremities moving, cranial nerves II through XII are intact, GCS is[default value] PSYCH: Normal mood and affect SKIN: Intact, warm and dry, no crepitus and without decubitus BACK: No CVA tenderness, no vertebral tenderness, no step-off's, no crepitus EXT: Atraumatic, hips are nontender, no pedal edema, normal color and temperature, normal range of motion of extremities with normal tendon exam, 2+ pulses in all four extremities Initial Vital Signs Initial Vital Signs: Vital Signs Temperature 97.5 F L 11/11/23 09:18 Pulse Rate 59 L 11/11/23 09:18 Respiratory Rate 18 11/11/23 09:18 Blood Pressure 177/83 H 11/11/23 09:18 Pulse Oximetry 99 11/11/23 09:18 Oxygen Delivery Method Room Air 11/11/23 09:18 Course Orders Ordered: ED Orders 11/11/23 10:15 XR ribs LT min 3V w CXR1V Stat Vital Signs Vital signs: Vital Signs - 8 hr 11/11/23 13:10 Pulse Rate 50 L Respiratory Rate 16 Blood Pressure 163/72 H Pulse Oximetry 98 Oxygen Delivery Method Room Air MDM - Back Pain/Injury Lab Data Labs: Urine Dip Bedside Urine Glucose Negative Bedside Urine Bilirubin - Negative Bedside Urine Ketone - Negative Urine Specific [place] 1.010 Bedside Urine Occult Blood - Negative Bedside Urine pH 6.0 Bedside Urine Protein - Negative Bedside Urine Urobilinogen - Negative Bedside Urine Nitrite - Negative Bedside Urine Leukocytes - Negative Esterase Imaging Data CXR w/ left ribs: Radiologist's Impression: Haresh Garcia??63??M??1960 ? Allergy/Adv: cashew nut, oxycodone, peanut, prochlorperazine, nickel, Phenothiazines (More??) Close Ribs X-Ray (Signed) Lito Adams - 11/11/23 Cervical Spine MRI 11/11/23 Echocardiogram Ultrasound (Signed) Marielle Hughes - 08/28/[address] (Signed) Ramiro Holly - 06/02/23 Lumbar Spine X-Ray (Signed) Ximena Chaudhry - 05/25/23 Thoracic Spine X-Ray (Signed) Ximena Chaudhry - 05/25/23 Shoulder X-Ray (Signed) Sirena Silveirau - 05/25/23 Shoulder X-Ray (Signed) Jordana,Ilanyu - 05/25/23 Chest X-Ray (Signed) Jordana,Ilanyu - 05/25/23 Echocardiogram Ultrasound (Signed) Vlad Ralph - 08/27/21 Myocardial Perfusion Scan Nuc Med (Signed) MargoGregoria - 08/27/21 Myocardial Perfusion Scan Nuc Med (Cancelled) 08/27/21 Lumbar Spine X-Ray (Signed) RubioMinal - 01/04/[address] (Signed) Danny Contreras - 01/04/19 Cervical Spine X-Ray (Signed) Marquise Quintanilla - 01/12/18 Shoulder MRI (Signed) Caesar Escobar - 10/04/17 Cervical Spine MRI (Signed) Elton Silveira - 10/04/17 Shoulder X-Ray (Signed) Marquise Quintanilla - 09/13/17 [place] [address] XRay Report Signed Patient: Haresh Garcia MR#: [id number] : 1960 Acct:[id number] Age/Sex: 63 / M Date of Service: 11/11/23 Loc: ED Accession Number: [id number] Procedure: XR ribs LT min 3V w CXR1V Ordering Provider: Johanne Jacome D.O. PROCEDURE: XR RIBS LT MIN 3V W CXR1V INDICATIONS: left rib 8/9, posterior after fall from hammock yesterday TECHNIQUE: 2 views of the ribs were acquired, along with a single view chest. COMPARISON: None. FINDINGS: Surgical changes and devices: Sternotomy wires. Mediastinal clips. Partially seen cervical hardware. Bones and chest wall: No acute displaced fracture. Lungs and pleura: No dense consolidation or pleural effusion. Mediastinum: Normal heart size IMPRESSION: No acute radiographic abnormality. Nondisplaced fractures or minimally displaced fractures can be occult on radiography. Consider cross-sectional imaging if there is further concern. Dictated by: Lito Adams M.D. on 11/11/2023 at 11:05 Approved by: Lito Adams M.D. on 11/11/2023 at 11:07 [facility] Narrative Medical decision making narrative: 63-year-old male with fall from a Hammock onto metals bar on the ground that was holding the Hammock stable. Patient had some left-sided rib pain yesterday but increased with knees earlier today. He has no midline tenderness, states he did not hit his head unable to clinically clear cervical spine. Plan for x-ray with rib series shows no acute change. Discussed with patient we will continue with incentive spirometer, short course of pain medication and return precautions. Discharge Plan Departure Patient Disposition: Home Clinical Impression: Rib pain on left side Instructions: DI for Rib Fracture Activity Restrictions/Additional Instructions: Follow-up for recheck as needed. There is no obvious fracture to the rib on your x-ray but you can sometimes have cracks or breaks that are not seen unless displaced. Use incentive spirometer once hourly while awake for the next 1-2 weeks. Can take Tylenol up to a 1000 mg every 6 hours or [place]ison 1-2 tablet every 6 hours as needed for pain. This medication can make you sleepy do not drive, perform hazardous activities or make any major decisions while taking it. This medication will make you constipated please take a stool softener once to twice daily until stools are soft and regular. Prescription sent to [facility] in [place]. Please return for worsening pain, new shortness of breath, lightheadedness or passing out, new bruising or skin changes or other new or concerning changes Prescriptions: New hydrocodone-acetaminophen 5-325 mg tablet 1 tab PO Q6H PRN (Reason: pain) Qty: 14 0RF No Action multivitamin Tablet 1 tab PO DAILY Qty: 0 ascorbic acid (vitamin C) [Vitamin C] 1,000 mg Tablet 1,000 mg PO BID Qty: 0 montelukast 10 mg Tablet 10 mg PO QPM Qty: 0 nitroglycerin 0.4 mg Tablet, Sublingual 0.4 mg SUBLINGUAL Q5-15M PRN (Reason: Chest Pain) Qty: 0 cholecalciferol (vitamin D3) [Vitamin D3] 1,000 unit Capsule 3,000 unit PO DAILY Qty: 0 atorvastatin 40 mg Tablet 40 mg PO BEDTIME ivermectin 3 mg Tablet 4 tab PO SEEINSTR Rx Instructions: every other Monday cetirizine [Zyrtec] 10 mg Tablet 10 mg PO DAILY omeprazole 40 mg Capsule,Delayed Release(Dr/Ec) 40 mg PO BID aspirin 81 mg Tablet,Delayed Release (Dr/Ec) 81 mg PO BEDTIME levothyroxine 25 mcg Tablet 25 mcg PO DAILY meloxicam 7.5 mg Tablet 7.5 mg PO BID gabapentin 800 mg Tablet 1,600 mg PO QAM Rx Instructions: 1600mg qam, 2000mg qpm albuterol sulfate 90 mcg/actuation Hfa Aerosol Inhaler 1 puff INHALATION Q4-6H PRN (Reason: Asthma) metoprolol tartrate 25 mg Tablet 25 mg PO BID fenofibrate nanocrystallized [Tricor] 145 mg Tablet 145 mg PO BEDTIME Selzentry 150 mg Tablet 150 mg PO BID glycopyrrolate 1 mg Tablet 1 mg PO BID gabapentin 800 mg Tablet 2,000 mg PO QPM Rx Instructions: 1600 mg am 2000 mg pm hydrochlorothiazide 25 mg Tablet 25 mg PO DAILY Triumeq 600-50-300 mg Tablet 1 tab PO DAILY cyanocobalamin (vitamin B-12) 1,000 mcg/mL Solution See Rx Instructions .ROUTE .COMPLEX Rx Instructions: 1,000 mcg intramuscular twice a month Vitamin B-12 1 tab PO DAILY cyclobenzaprine 10 mg tablet 10 mg PO TID PRN (Reason: muscle spasm) Qty: 10 0RF ibuprofen 800 mg tablet 800 mg PO TID PRN (Reason: pain) Qty: 10 0RF Referrals: Teresa Hoang MD [Primary Care Provider] - Stand Alone Forms: Patient Portal/API
--- NOTE | 2023-11-11 10:15 | DI.RAD.S_ITS ---
PROCEDURE: XR RIBS LT MIN 3V W CXR1V INDICATIONS: left rib 8/9, posterior after fall from hammock yesterday TECHNIQUE: 2 views of the ribs were acquired, along with a single view chest. COMPARISON: None. FINDINGS: Surgical changes and devices: Sternotomy wires. Mediastinal clips. Partially seen cervical hardware. Bones and chest wall: No acute displaced fracture. Lungs and pleura: No dense consolidation or pleural effusion. Mediastinum: Normal heart size IMPRESSION: No acute radiographic abnormality. Nondisplaced fractures or minimally displaced fractures can be occult on radiography. Consider cross-sectional imaging if there is further concern. Dictated by: Lito Adams M.D. on 11/11/2023 at 11:05 Approved by: Lito Adams M.D. on 11/11/2023 at 11:07
[2023-11-11 13:10] VITALS: BP 163/72; PULSE 50; RESP 16; O2SAT 98
== END 2023-11-11 13:10 | disposition home or self-care (01) ==
PROVIDERS: Emergency Provider Emergency Medicine; Family Provider Family Medicine; PCP Family Medicine
DX: R07.81 Pleurodynia (principal); M54.12 Radiculopathy, cervical region; M48.02 Spinal stenosis, cervical region
CPT/HCPCS: 71101; 72141; 81003; 99281; 99283

== ENCOUNTER → 2023-12-14 14:37 | Outpatient (CLI) | payer OTHER, MEDICAID, SELFPAY ==
[2021-08-26 13:27] VITALS: BMI 31.6
--- NOTE | 2023-12-14 14:38 | DI.US.S_ITS ---
PROCEDURE: US CAROTID DOPPLER BI INDICATIONS: DIZZINESS AND GIDDINESS TECHNIQUE: Color and pulse Doppler interrogation was performed of both carotid systems, with image documentation and velocity measurements. COMPARISON: None. FINDINGS: Stenosis calculations are based on SRU (Society of Radiologists in Ultrasound) criteria. Right side: Brachial blood pressure: 132 mm Hg. Common carotid artery peak systolic velocity: 98 cm/sec. Internal carotid artery peak systolic velocity: 115 cm/sec. Internal carotid artery end diastolic velocity: 26 cm/sec. External carotid artery peak systolic velocity: 123 cm/sec. ICA/CCA peak systolic ratio: 1.2 . Shaw scale imaging description: Mild to moderate atherosclerotic plaque Percent internal carotid artery stenosis: Less than 50% stenosis . Vertebral artery: Flow direction is antegrade. Left side: Brachial blood pressure: 124 mm Hg. Common carotid artery peak systolic velocity: 117 cm/sec. Internal carotid artery peak systolic velocity: 84 cm/sec. Internal carotid artery end diastolic velocity: 22 cm/sec. External carotid artery peak systolic velocity: 83 cm/sec. ICA/CCA peak systolic ratio: 0.72 . Shaw scale imaging description: Kufl-sr-ufogegku atherosclerotic plaque Percent internal carotid artery stenosis: Less than 50% stenosis . Vertebral artery: Flow direction is antegrade. IMPRESSION: Bilateral internal carotid arteries demonstrate less than 50% stenosis. Dictated by: Maria Del Carmen Mullins M.D. on 12/15/2023 at 13:02 Approved by: Maria Del Carmen Mullins M.D. on 12/15/2023 at 13:03
== END ==
PROVIDERS: Family Provider Family Medicine; PCP Family Medicine; Referring Provider Family Medicine; Visit Provider Family Medicine
DX: R42 Dizziness and giddiness (principal); I65.23 Occlusion and stenosis of bilateral carotid arteries
CPT/HCPCS: 93880

== ENCOUNTER → 2024-08-12 13:43 | Outpatient (CLI) | payer OTHER, MEDICAID, SELFPAY ==
[2021-08-26 13:27] VITALS: BMI 31.6
--- NOTE | 2024-08-12 13:44 | DI.ECHO.S_ITS ---
Version 4 [facility] +---------+ Hospital : : [id number] : : [place] : : [id number] : : Phone: [phone] Echocardiogram Report + + :Name: SHAHNAZ MCKENZIE Study Date: 08/12/2024 Height: 67 in : :[facility] ReadingLocation: Weight: 185 lb : : Gender: Male BSA: 2.0 m2 : :: 1960 Age: 63 yrs BP: 134/77 mmHg: :Reason For Study: AORTIC VALVE INSUFFICIENCY : :Ordering Physician: CRAIG, : :SUDHIR Performed By: Paulette Gray : :Referring: SUDHIR SRINIVASAN : + + Interpretation Summary The left ventricle is normal in size and wall thickness. The left ventricular ejection fraction is normal. The ejection fraction is estimated to be 65-70%. The right ventricle is normal in size and function. Mild MR. A bicuspid aortic valve cannot be excluded. Suspect subaortic membrane which was seen on previous echo as well. The peak aortic velocity is 3.0 m/sec. The aortic valve mean gradient is 36 mmHg. The calculated aortic valve area is 1.2 cm2. The peak aortic velocity on the previous exam was 3.0 m/sec. There is moderate aortic stenosis. There is moderate aortic regurgitation. Compared to the prior echo study, there has been no change in the severity of aortic regurgitation. There is mild to moderate tricuspid regurgitation. Previously mild TR. The right ventricular systolic pressure is estimated to be at least 34 mmHg based on an estimated right atrial pressure of 3 mm Hg. The ascending aorta is mildly enlarged. 4.1 cm in diameter. Previously 4.0 cm in diameter. Procedure: A two-dimensional transthoracic echocardiogram with color flow and Doppler was performed. The study quality was technically adequate. Comparison is made with the echocardiogram of 08/28/2023. The patient was in sinus bradycardia with heart rates between 52-65 bpm during the exam. Left Ventricle: The left ventricle is normal in size and wall thickness. There is no thrombus. The ejection fraction is estimated to be 65-70%. The left ventricular ejection fraction is normal. There are no focal wall motion abnormalities. MV E/A: 1.2 Med Peak E' Cale: 8.3 cm/sec E/E' med: 12.3. Right Ventricle: The right ventricle is normal in size and function. Atria: The left atrium is mildly dilated. There has been no significant change since the previous study. Right atrial size is normal. There is no Doppler evidence for an interatrial shunt. Mitral Valve: The mitral valve leaflets appear mildly thickened, but open well. There is mild mitral annular calcification. There is mild mitral regurgitation. There has been no significant change since the previous study. Aortic Valve: The aortic valve is mildly calcified. A bicuspid aortic valve cannot be excluded. Suspect subaortic membrane which was seen on previous echo as well. The peak aortic velocity is 3.0 m/sec. The aortic valve mean gradient is 36 mmHg. The calculated aortic valve area is 1.2 cm2. The peak aortic velocity on the previous exam was 3.0 m/sec. There is moderate aortic stenosis. There is moderate aortic regurgitation. Compared to the prior echo study, there has been no change in the severity of aortic regurgitation. Tricuspid Valve: The tricuspid valve leaflets are thin and pliable. There is mild to moderate tricuspid regurgitation. The right ventricular systolic pressure is estimated to be at least 34 mmHg based on an estimated right atrial pressure of 3 mm Hg. Pulmonic Valve: The pulmonic valve leaflets are thin and pliable; valve motion is normal. There is a trace or physiologic amount of pulmonic regurgitation. Great Vessels: The aortic root is normal size. The ascending aorta is mildly enlarged. The IVC is of normal diameter and collapses greater than 50% with a sniff. This suggests a low right atrial pressure of 3 mm Hg. Pericardium/ Pleura There is no pericardial effusion. There is no pleural effusion. MMode/2D Measurements & Calculations LVIDd: 4.7 cm LVOT diam: 2.1 cm LVIDs: 3.1 cm Ao root diam: 3.7 cm FS: 34.0 % asc Aorta Diam: 4.1 cm EPSS: 0.90 cm Ao Arch Diam (Prox Trans): 3.7 cm IVSd: 1.0 cm LVPWd: 0.94 cm LV stevens. diameter/BSA (cm/m^2): 2.4 LV sys. diameter/BSA (cm/m^2): 1.6 LA A2 area: 21.8 cm2 RA long axis: 4.8 cm LA A4 area: 22.1 cm2 RA area: 18.4 cm2 LA length (vol): 6.1 cm RA vol: 59.7 ml LA vol: 66.7 ml RA : 30.5 ml/m2 LA vol index: 34.1 ml/m2 IVC diam: 1.7 cm RVD1 (basal): 3.9 cm RVD2 (mid): 3.7 cm TAPSE: 2.1 cm Doppler Measurements & Calculations Ao V2 max: 300.7 cm/sec LVOT Max Cale: 100.6 cm/sec Ao V2 mean: 197.3 cm/sec LV V1 max P.0 mmHg Ao max P.2 mmHg LV V1 VTI: 26.3 cm Ao mean P.2 mmHg ANGELA(I,D): 1.3 cm2 Ao V2 VTI: 70.2 cm ANGELA(V,D): 1.2 cm2 sev ratio: 0.37 ANGELA indexed to BSA (cm^2/m^2): 0.68 AI P1/2t: 639.5 msec AI dec slope: 190.8 cm/sec2 MV E max cale: 102.4 cm/sec TR max cale: 274.7 cm/sec MV A max cale: 83.8 cm/sec TR max P.2 mmHg MV E/A: 1.2 PA V2 max: 112.2 cm/sec Med Peak E' Cale: 8.3 cm/sec PA V2 mean: 75.0 cm/sec E/E' med: 12.3 PA mean P.5 mmHg Lat Peak E' Cale: 7.4 cm/sec PA pr(Accel): 25.1 mmHg E/E' lat: 13.8 E/e' average: 13.0 MV dec time: 0.30 sec SV(LVOT): 93.2 ml Reading Physician:08:37 AM
== END ==
PROVIDERS: Family Provider Family Medicine; PCP Family Medicine; Referring Provider Internal Medicine Cardiovascular Disease; Visit Provider Internal Medicine Cardiovascular Disease
DX: I08.3 Combined rheumatic disorders of mitral, aortic and tricuspid valves (principal); Q24.4 Congenital subaortic stenosis; I77.89 Other specified disorders of arteries and arterioles
CPT/HCPCS: 93306